=== PATIENT | female | born 1955 | race Caucasian/White ===

== ENCOUNTER → 2019-09-06 13:39 | Outpatient (CLI) | payer SELFPAY ==
--- NOTE | 2019-09-06 13:56 | US_ITS ---
STUDY: ULTRASOUND TRANSVAGINAL CLINICAL: Female, 63 years old. POST MENOPAUSAL VAGINAL DISCHARGE -- HX OF LYMPHOMA TECHNIQUE: Transvaginal COMPARISON: None. FINDINGS: Normal uterine size measuring 8.5 x 5.3 x 2.6 cm in maximal craniocaudal dimension. There are no myometrial masses. Normal endometrial thickness measuring 18 mm. There are no endometrial masses, and there is no fluid in the endometrial cavity. There is fluid within the endocervical canal. Bilateral ovaries are not visualized. There is no free fluid in the pelvis. US/Pelvic (Non ) IMPRESSION: Enlarged endometrium for postmenopausal age which may be seen with the endometrial hyperplasia or carcinoma, clinical correlation recommended and if indicated, follow-up with [facility] [employer] [facility] consultation. Bilateral ovaries and uterus including endometrium may be more accurately characterized with MRI of the pelvis in nonacute setting if indicated. Electronically Signed: Annette Leonard MD at 4:15 EST , Service support ,
--- NOTE | 2019-09-06 13:56 | US_ITS ---
STUDY: ULTRASOUND TRANSVAGINAL CLINICAL: Female, 63 years old. POST MENOPAUSAL VAGINAL DISCHARGE -- HX OF LYMPHOMA TECHNIQUE: Transvaginal COMPARISON: None. FINDINGS: Normal uterine size measuring 8.5 x 5.3 x 2.6 cm in maximal craniocaudal dimension. There are no myometrial masses. Normal endometrial thickness measuring 18 mm. There are no endometrial masses, and there is no fluid in the endometrial cavity. There is fluid within the endocervical canal. Bilateral ovaries are not visualized. There is no free fluid in the pelvis. US/Transvaginal Non- IMPRESSION: Enlarged endometrium for postmenopausal age which may be seen with the endometrial hyperplasia or carcinoma, clinical correlation recommended and if indicated, follow-up with [facility] consultation. Bilateral ovaries and uterus including endometrium may be more accurately characterized with MRI of the pelvis in nonacute setting if indicated. Electronically Signed: Annette Leonard MD at 4:15 EST , Service support ,
== END ==
PROVIDERS: Family Provider Family Medicine; PCP Family Medicine; Referring Provider Family Medicine; Visit Provider Family Medicine
DX: N89.8 Other specified noninflammatory disorders of vagina (principal); Z78.0 Asymptomatic menopausal state
CPT/HCPCS: 76830; 76856

== ENCOUNTER → 2019-10-01 17:05 | Outpatient (CLI) | payer SELFPAY ==
--- NOTE | 2019-10-01 14:15 | EMB_PTH ---
PATIENT: WINIFRED RONDON LOC: [facility] U#:[id number] AGE/SX: 69/F ROOM: RE10/01/[address]: Dr. Yarely Felder MD : 1955 BED: DIS: SPEC #: [id number] RECD: 10/01/19 17:00 STATUS: KEYON JUAN DIEGO #: [id number] EPI: 10/01/19 14:[address]: Yarely Mcnamara DEPT: SURGICAL PATHOLOGY RECD BY: Jose A Ramey ENTERED: 10/02/19 11:33 SP TYPE: ENDOM BX/C NAVID DR: Dr. Raul Hernandez, DO Tissues: Endometrium, NOS Procedures: Surgery Specimen Level IV HEADER OPERATION: Endometrial biopsy PRE-OP DIAGNOSIS: Postmenopausal bleeding TISSUE SUBMITTED: Endometrial biopsy MICROSCOPIC DIAGNOSIS Endometrium, biopsy: Complex hyperplasia with cytologic atypia. AM:sukhdev 10/03/19 COMMENT Case has been reviewed in consultation with Dr. Cope who concurs with the above diagnosis. IDC:[id number] MICROSCOPIC DESCRIPTION Slides are reviewed. GROSS DESCRIPTION Received in fixative is one container labeled with the patient's name and designated endometrial biopsy. The specimen consists of multiple irregular fragments of reddish-crenshaw soft tissue that in aggregate measure 2.5 x 2 x 0.1 cm. The specimen is totally submitted in one cassette. / AM:rg 10/02/19 TC:0 CPT: 96288
== END ==
PROVIDERS: PCP Family Medicine; Referring Provider Obstetrics & Gynecology; Visit Provider Obstetrics & Gynecology
DX: N95.0 Postmenopausal bleeding (principal)
CPT/HCPCS: 88305